=== PATIENT | female | born 1995 | race African-American/Black ===

== ENCOUNTER 2021-01-04 13:38 | Emergency (ER) | payer SELFPAY ==
[~2021-01-04] VITALS: Ht 167.6 cm; Wt 60.0 kg
[2021-01-04 13:43] VITALS: BP 116/64
== END 2021-01-04 17:10 | disposition left against medical advice (07) ==
LOC: ER 13:47
DX: Z53.21 Procedure and treatment not carried out due to patient leaving prior to being seen by health care provider (principal)
CPT/HCPCS: 93005